=== PATIENT | female | born 1940 | race Caucasian/White ===

== ENCOUNTER 2020-12-20 17:36 | Emergency (ER) | payer MEDICARE ==
[~2020-12-20 17:36] MED LIST: ALLEGRA ALLERG180 MG PO; ALLOPURINOL100 MG PO; AMARYL2 MG PO; ASPIRIN EC81 MG PO; CALCIUM + D3 E1 EACH PO; CERTAGEN1 EACH PO; COREG 6.25MG6.25 MG PO; CRESTOR20 MG PO; NASONEX NAS120 PUFFS; NEURONTIN300 MG PO; PRINIVIL10 MG PO; PROTONIX 40MG T40 MG PO; PROZAC10 MG PO; VITAMIN D3400 UNI1 PO
[2020-12-20 18:46] LABS: BASOPHIL 0.8 % (0-2); EOSINOPHIL 4.9 % (0-7); HCT 32.2 % (37.0-47.0); MCH 32.4 pg (25.0-31.0); MCHC 34.2 g/dL (32.0-36.0); MONOCYTE 9.2 % (0-12); MPV 9.5 fL (6.0-9.5); NEUTROPHIL 54.8 % (41-80); NRBC 0; PLT 172 K/uL (150-400); RBC 3.39 M/uL (4.20-5.40); RDW 13.9 % (11.5-14.0); WBC 6.5 K/uL (4.0-10.5)
[2020-12-20 19:25] LABS: BILIRUBIN - TOTAL 0.5 mg/dL (0.2-1.0); CREATININE 0.94 mg/dL (0.51-0.95); POTASSIUM 4.5 mmol/L (3.5-5.1)
[2020-12-20 20:09] LABS: BILIRUBIN NEGATIVE (NEGATIVE); BLOOD NEGATIVE Ery/uL (NEGATIVE); CLARITY CLEAR (CLEAR); COLOR YELLOW (YELLOW); GLUCOSE (U) NORMAL (NORMAL); LEUKOCYTES 1+ Leu/uL (NEGATIVE); NITRITE NEGATIVE (NEGATIVE); PROTEIN NEGATIVE (NEGATIVE); SPECIFIC GRAVITY <=1.005 (1.001-1.030); UROBILINOGEN 0.2 mg/dL (0.2-1.0)
[2020-12-20 20:18] LABS: BACTERIA TRACE; URINARY RBC RARE
[2020-12-20] MEDS ORDERED: MACROBID100 MG PO (21:07)
== END 2020-12-20 21:20 | disposition home or self-care (01) ==
LOC: FER 17:36
PROVIDERS: Emergency Medicine; Internal Medicine
DX: R00.2 Palpitations (principal); N39.0 Urinary tract infection, site not specified; I25.10 Atherosclerotic heart disease of native coronary artery without angina pectoris; I25.2 Old myocardial infarction; I10 Essential (primary) hypertension; Z86.73 Personal history of transient ischemic attack (TIA), and cerebral infarction without residual deficits; Z88.6 Allergy status to analgesic agent; Z88.5 Allergy status to narcotic agent
CPT/HCPCS: 36415; 71045; 80053; 81001; 84443; 84484; 85025; 93005; J1642

== ENCOUNTER → 2021-07-18 | Day surgery (SDC) | payer MEDICARE ==
[~2021-07-18] VITALS: Ht 162.6 cm; Wt 75.5 kg
[~2021-07-18] MED LIST changes: +COLESTID 1GM TAB1 GM PO; +MACROBID100 MG PO; +ONDANSETRON ODT4 MG PO; +SINGULAIR10 MG PO; +XANAX0.5 MG PO
[2021-07-18 09:25] LABS: HCT 32.7 % (37.0-47.0); HGB 11.1 g/dl (12.5-16.0); MCH 31.6 pg (25.0-31.0); MCHC 33.9 g/dL (32.0-36.0); MCV 93.2 fL (78.0-100.0); MPV 9.8 fL (6.0-9.5); RBC 3.51 M/uL (4.20-5.40); RDW 14.1 % (11.5-14.0); WBC 6.2 K/uL (4.0-10.5)
[2021-07-18 09:52] LABS: ALBUMIN 4.4 g/dL (3.4-5.0); BILIRUBIN - TOTAL 0.7 mg/dL (0.2-1.0); CREATININE 1.2 mg/dL (0.51-0.95); GLOBULIN (CALCULATION) 3.2 g/dL; POTASSIUM 4.4 mmol/L (3.5-5.1); TOTAL PROTEIN 7.6 g/dL (6.4-8.2)
== END | disposition home or self-care (01) ==
LOC: FAS 08:15
PROVIDERS: Surgery
DX: K92.1 Melena (principal); D12.6 Benign neoplasm of colon, unspecified; K64.8 Other hemorrhoids; K58.9 Irritable bowel syndrome, unspecified; K63.89 Other specified diseases of intestine; I25.10 Atherosclerotic heart disease of native coronary artery without angina pectoris; I10 Essential (primary) hypertension; E11.9 Type 2 diabetes mellitus without complications; Z85.038 Personal history of other malignant neoplasm of large intestine; Z90.49 Acquired absence of other specified parts of digestive tract; Z90.710 Acquired absence of both cervix and uterus; Z95.5 Presence of coronary angioplasty implant and graft; Z88.5 Allergy status to narcotic agent; Z88.0 Allergy status to penicillin; Z88.2 Allergy status to sulfonamides; Z79.82 Long term (current) use of aspirin
CPT/HCPCS: 36415; 80053; J1610; J1642; J2250; J2704; J7120